=== PATIENT | male | born 1960 | race Caucasian/White ===

== ENCOUNTER 2019-03-16 09:09 | Emergency (ER) | payer OTHER ==
[~2019-03-16] VITALS: Ht 170.1 cm; Wt 81.6 kg
[~2019-03-16 09:09] MED LIST: CHERATUSSIN A3840 ML PO; DARVOCET N 1001 TAB PO; PREDNISONE PO; PREDNISONE20 MG PO; ROBITUSSIN AC 110 ML PO; VIBRAMYCIN100 MG PO
[2019-03-16] MEDS ORDERED: PROAIR HFA8.5 GM INH (11:09)
[2019-03-16] MEDS ORDERED: PREDNISONE50 MG PO (11:09)
[2019-03-16] MEDS ORDERED: ZITHROMAX250 MG PO (11:09)
== END 2019-03-16 11:26 | disposition home or self-care (01) ==
LOC: ED 09:09
DX: J20.9 Acute bronchitis, unspecified (principal); F17.200 Nicotine dependence, unspecified, uncomplicated; Z88.0 Allergy status to penicillin; Z79.899 Other long term (current) drug therapy

== ENCOUNTER 2019-06-28 17:52 | Inpatient (IN) | payer OTHER ==
[~2019-06-28] VITALS: Ht 170.1 cm; Wt 70.4 kg
--- NOTE | ~2019-06-28 | EKG ---
[place], [place] ELECTROCARDIOGRAM REPORT NAME: HENNA GARVEY UNIT #: [id number] ROOM: 517 DOCTOR: JUAN C DRAFT REPORT BIRTHDATE: [birth year] [facility] Test Date: 2019-06-28 Test Time: 18:33:25 Pat Name: HENNA GARVEY Department: Room: 517 Gender: M Negative Notcher: Eleazar Lobo : 1960 Requested By: SILVANO AGGARWAL Order Number: [id number] Reading MD: Debbie Mclaughlin MD Measurements Intervals [place] Rate: 75 P: 60 IN: 120 QRS: 78 QRSD: 105 T: 62 QT: 417 QTc: 466 Interpretive Statements Sinus rhythm Electronically Signed On 06-29-2019 9:06:02 PST by Debbie Mclaughlin MD CM:EKGRPT:ELECTROCARDIOGRAM REPORT [id number] SILVANO HOOKER DRAFT REPORT SILVANO AGGARWAL DO
[~2019-06-28 17:52] MED LIST changes: +PREDNISONE50 MG PO; +PROAIR HFA8.5 GM INH; +ZITHROMAX250 MG PO
[2019-06-28 17:53] VITALS: BP 127/86
[2019-06-28 18:29] LABS: BASO % 0.3 % (0.0-1.0); EOS # 0.2 10*3/uL (0.0-0.4); EOS % 2.1 % (1.0-4.0); HEMATOCRIT 42.9 % (42.0-52.0); HEMOGLOBIN 14.2 g/dl (14.0-18.0); LYMPH # 2.3 10*3/uL (1.3-4.4); LYMPH % 25.7 % (27.0-41.0); MEAN CELL VOLUME 92.7 fl (80.0-94.0); MEAN CORPUSCULAR HGB 30.7 pg (27.0-31.0); MEAN CORPUSCULAR HGB CONC 33.1 g/dl (33.0-37.0); MEAN PLATELET VOLUME 8.6 fl (9.6-12.3); MONO # 0.8 10*3/uL (0.1-1.0); MONO % 9.4 % (3.0-9.0); NEUT # 5.6 10*3/uL (2.3-7.9); NEUT % 62.4 % (47.0-73.0); PLATELET COUNT AUTOMATED 266 10*3/uL (130-400); RED BLOOD COUNT 4.63 10*6/uL (4.50-5.90); RED CELL DISTRI WIDTH 13.2 % (0-14.5)
[2019-06-28 18:57] LABS: ALBUMIN 3.9 gm/dl (3.1-4.5); ALKALINE PHOSPHATASE 73 U/L (45-117); BUN 8 mg/dl (7-24); CHLORIDE 104 mmol/L (98-107); CREATININE 0.87 mg/dL (0.70-1.30); POTASSIUM 3.6 mmol/L (3.5-5.1); SGOT/AST 38 IU/L (3-35); SGPT/ALT 35 U/L (12-78); SODIUM 137 mmol/L (136-145); TOTAL PROTEIN 7.6 gm/dL (6.4-8.2)
[2019-06-28 18:58] LABS: TROPONIN I < 0.015 ng/ml (<0.045)
[2019-06-28 21:14] VITALS: BP 132/68
[2019-06-29] VITALS: BP 124/76
[2019-06-29] MEDS ORDERED: SERTRALINE HYD100 MG PO (05:14)
[2019-06-29 09:21] VITALS: BP 160/75
[2019-06-29 09:45] VITALS: BP 140/79
[2019-06-29 10:12] LABS: BILIRUBIN NEGATIVE (NEGATIVE); BLOOD NEGATIVE (NEGATIVE); CLARITY CLEAR (CLEAR); COLOR YELLOW (YELLOW); GLUCOSE NEGATIVE (NEGATIVE); KETONE NEGATIVE (NEGATIVE); LEUKO ESTERASE NEGATIVE (NEGATIVE); NITRITE NEGATIVE (NEGATIVE); PH 6.5 (5.0-9.0); UROBILINOGEN 0.2 E.U./dl (0.2-1.0)
[2019-06-29 10:20] LABS: URINE AMPHETAMINES > 1000 (1000ng/ml); URINE BARBITURATES < 200 (200ng/ml); URINE BENZODIAZEPINES < 200 (200ng/ml); URINE CANNABINOIDS (THC) < 50 (50ng/ml); URINE COCAINE < 300 (300ng/ml); URINE METHADONE < 300 (300ng/ml); URINE OPIATES < 300 (300ng/ml)
[2019-06-29 10:30] LABS: URINE PHENCYCLIDINE < 25 (25ng/ml)
[2019-06-29 10:34] LABS: BACTERIA TRACE; MUCOUS 3+; RBC 0-2 rbc/hpf (0-2); WBC 0-2 wbc/hpf (0-5)
[2019-06-29 12:00] VITALS: BP 145/75
[2019-06-29 16:00] VITALS: BP 142/68
[2019-06-29 20:00] VITALS: BP 124/78
[2019-06-30] VITALS: BP 154/84
[2019-06-30 08:00] VITALS: BP 135/76
[2019-06-30 12:00] VITALS: BP 133/72
[2019-06-30 16:00] VITALS: BP 130/74
[2019-06-30 20:00] VITALS: BP 152/82
[2019-07-01] VITALS: BP 162/78
[2019-07-01 06:47] LABS: BASO % 0.4 % (0.0-1.0); EOS # 0.2 10*3/uL (0.0-0.4); EOS % 2.6 % (1.0-4.0); HEMATOCRIT 44.4 % (42.0-52.0); HEMOGLOBIN 14.1 g/dl (14.0-18.0); LYMPH # 1.6 10*3/uL (1.3-4.4); MEAN CELL VOLUME 95.7 fl (80.0-94.0); MEAN CORPUSCULAR HGB 30.4 pg (27.0-31.0); MEAN CORPUSCULAR HGB CONC 31.8 g/dl (33.0-37.0); MONO # 0.7 10*3/uL (0.1-1.0); MONO % 9.7 % (3.0-9.0); NEUT # 4.8 10*3/uL (2.3-7.9); NEUT % 64.9 % (47.0-73.0); PLATELET COUNT AUTOMATED 266 10*3/uL (130-400); RED BLOOD COUNT 4.64 10*6/uL (4.50-5.90); RED CELL DISTRI WIDTH 12.9 % (0-14.5); WHITE BLOOD COUNT 7.4 10*3/uL (4.8-10.8)
[2019-07-01 07:08] LABS: CREATININE 0.83 mg/dL (0.70-1.30)
[2019-07-01 08:00] VITALS: BP 130/68
[2019-07-01 12:00] VITALS: BP 120/74
[2019-07-01 16:00] VITALS: BP 134/83
== END 2019-07-01 19:47 | disposition home or self-care (01) | DRG 775 ==
LOC: ED 17:52 → 5E 18:14 → EDHOLD 18:14 → 5E 06-29 08:38
PROVIDERS: Emergency Medicine; ADMIT Family Medicine
DX: F10.230 Alcohol dependence with withdrawal, uncomplicated (principal); F41.9 Anxiety disorder, unspecified; F33.9 Major depressive disorder, recurrent, unspecified; F10.29 Alcohol dependence with unspecified alcohol-induced disorder; F17.210 Nicotine dependence, cigarettes, uncomplicated; E83.41 Hypermagnesemia; R73.9 Hyperglycemia, unspecified; F10.220 Alcohol dependence with intoxication, uncomplicated; I25.2 Old myocardial infarction; Z80.1 Family history of malignant neoplasm of trachea, bronchus and lung; Z79.899 Other long term (current) drug therapy; Z88.0 Allergy status to penicillin; Z81.1 Family history of alcohol abuse and dependence; Z71.6 Tobacco abuse counseling